=== PATIENT | male | born 1980 | race Caucasian/White ===

== ENCOUNTER → 2018-09-05 06:39 | Outpatient (CLI) | payer OTHER, SELFPAY ==
[2018-09-05 07:20] LABS: Hematocrit 47.2 % (40-54); Hemoglobin 16.7 g/dl (13.0-16.5); Mean Corp Hgb Conc 35.4 g/gl (32-36); Mean Corpuscular Hgb 30.4 pg (27.0-32.0); Mean Platelet Vol. 10.2 fl (6.2-12.0); Platelet Count 181 K/mm3 (150-450); RBC Distribution Width CV 12.3 % (11.6-14.6); RBC Distribution Width SD 38.8 fl (35.1-43.9); Red Blood Count 5.49 M/mm3 (4.6-6.2); White Blood Count 4.8 K/mm3 (4.4-11.0)
[2018-09-05 07:24] LABS: Scan Indicated on CBC? Y/N NO
[2018-09-05 07:55] LABS: Hemoglobin A1c 4.3 % (4.2-6.3)
[2018-09-05 08:04] LABS: Homocysteine 7.6 umol/L (3.2-10.7)
[2018-09-05 08:26] LABS: ALB/GLOB Ratio 1.1 RATIO (0.9-2.4); AST(SGOT) 19 U/L (15-37); Alanine Aminotransfer ALT/SGPT 32 U/L (16-61); Albumin, Serum 4.1 g/dL (3.2-5.0); Alkaline Phosphatase 56 U/L (45-117); Anion Gap 6 (5-15); BUN 23 mg/dL (7-18); BUN/Creat Ratio 18.4 RATIO (10-20); CRP, High Sensitivity Cardiac 0.42 mg/L; Chloride 105 mmol/L (98-107); Cholesterol 235 mg/dL (200); Creatinine, Serum 1.25 mg/dL (0.70-1.30); EST Glomerular Filtration Rate 69 mL/min (>60); Est Glom Filt Rate - Afr Amer 84 mL/min (>60); Estradiol 16.6 pg/mL; Follicle Stimulating Hormone 3.9 mIU/mL; Free T3 2.8 pg/mL (2.18-3.98); Globulin 3.9 g/dL (2.2-4.2); Glucose 92 mg/dL (74-106); High Density Lipoprotein 105 mg/dL; Iron 109 ug/dL (65-175); Luteinizing Hormone 4.8 mIU/mL; Magnesium 2.2 mg/dL (1.6-2.6); PSA,Total - Annual Screen 0.53 ng/mL (0.00-4.00); Potassium 4.3 mmol/L (3.5-5.1); Prolactin 9.6 ng/mL; Sodium Level 141 mmol/L (136-145); T4 Free Direct 1.12 ng/dL (0.76-1.46); Triglycerides 60 mg/dL; Very Low Density Lipoprotein 12 mg/dL (5-40)
[2018-09-05 08:48] LABS: Vitamin B12 702 pg/mL (211-911)
[2018-09-09 14:09] LABS: DHEA Sulfate 429.7 ug/dL (102.6-416.3); Insulin Like Growth Factor 173 ng/mL (83-233); Testosterone, % Free 3.08 % (1.50-4.20); Testosterone, Free 12.01 ng/dL (5.00-21.00)
[2018-09-09 15:38] LABS: Sex Hormone-binding Globulin 41.3 nmol/L (16.5-55.9); Testosterone, Total 390 ng/dL (264-916)
== END ==
PROVIDERS: Family Provider Internal Medicine; PCP Internal Medicine; Referring Provider Registered Nurse; Visit Provider Registered Nurse
DX: R53.82 Chronic fatigue, unspecified (principal); R68.82 Decreased libido
CPT/HCPCS: 36415; 80053; 80061; 82306; 82533; 82607; 82627; 82670; 82746; 83001; 83002; 83036; 83090; 83540; 83735; 84146; 84153; 84270; 84305; 84402; 84403; 84439; 84443; 84481; 85027; 86141; 82626; G0103

== ENCOUNTER → 2018-11-20 05:59 | Outpatient (CLI) | payer OTHER, SELFPAY ==
[2018-11-20 07:07] LABS: Hematocrit 50.7 % (40-54); Hemoglobin 17.5 g/dL (13.0-16.5); Mean Corp Hgb Conc 34.5 g/dL (32-36); Mean Corpuscular Hgb 31.7 pg (27.0-32.0); Mean Corpuscular Volume 91.8 fL (80-94); Mean Platelet Vol. 10.5 fl (6.2-12.0); Platelet Count 204 K/mm3 (150-450); RBC Distribution Width CV 11.7 % (11.6-14.6); RBC Distribution Width SD 39.8 fl (35.1-43.9); Red Blood Count 5.52 M/mm3 (4.6-6.2); White Blood Count 6.7 K/mm3 (4.4-11.0)
[2018-11-20 07:45] LABS: ALB/GLOB Ratio 1.1 RATIO (0.9-2.4); AST(SGOT) 22 U/L (15-37); Alanine Aminotransfer ALT/SGPT 34 U/L (16-61); Albumin, Serum 3.8 g/dL (3.2-5.0); Alkaline Phosphatase 52 U/L (45-117); Anion Gap 4 (5-15); BUN 18 mg/dL (7-18); BUN/Creat Ratio 16.2 RATIO (10-20); Calcium,Total 8.3 mg/dL (8.5-10.1); Chloride 104 mmol/L (98-107); Cholesterol 184 mg/dL (200); Creatinine, Serum 1.11 mg/dL (0.70-1.30); EST Glomerular Filtration Rate 79 mL/min (>60); Est Glom Filt Rate - Afr Amer 96 mL/min (>60); Estradiol 89.7 pg/mL; Globulin 3.5 g/dL (2.2-4.2); Glucose 90 mg/dL (74-106); High Density Lipoprotein 68 mg/dL; Potassium 3.5 mmol/L (3.5-5.1); Protein, Total 7.3 g/dL (6.4-8.2); Sodium Level 137 mmol/L (136-145); Triglycerides 84 mg/dL; Very Low Density Lipoprotein 17 mg/dL (5-40)
[2018-11-20 08:50] LABS: Progesterone Level 0.61 ng/mL (See Comment); Vitamin B12 515 pg/mL (211-911); Vitamin D,25 Hydroxy 40.8 ng/mL (29.95-100.01)
[2018-11-25 11:36] LABS: DHEA Sulfate 335.6 ug/dL (102.6-416.3); Testosterone, % Free 5.08 % (1.50-4.20); Testosterone, Total > 1500 ng/dL (264-916)
== END ==
PROVIDERS: Family Provider Internal Medicine; PCP Internal Medicine
DX: R53.82 Chronic fatigue, unspecified (principal); R68.82 Decreased libido; E29.1 Testicular hypofunction
CPT/HCPCS: 36415; 80053; 80061; 82306; 82607; 82627; 82670; 82746; 84144; 84402; 84403; 85027; 82626

== ENCOUNTER → 2019-03-06 12:05 | Outpatient (CLI) | payer OTHER, SELFPAY ==
[2019-03-04 17:05] VITALS: BMI 27.8
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
== END ==
PROVIDERS: Family Provider Internal Medicine; PCP Internal Medicine; Referring Provider Physician Assistant; Visit Provider Physician Assistant
DX: S46.912A Strain of unspecified muscle, fascia and tendon at shoulder and upper arm level, left arm, initial encounter (principal); V89.2XXA Person injured in unspecified motor-vehicle accident, traffic, initial encounter
CPT/HCPCS: 73221

== ENCOUNTER 2019-04-04 07:00 | Outpatient (RCR) | payer OTHER, SELFPAY ==
[2019-03-07 08:18] VITALS: BMI 27.8
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
--- NOTE | 2019-04-04 07:50 | HP.PTDCSUM ---
HP - PT D/C Summary It has been my pleasure to treat ZACHARY GONZALEZ under orders from EZEQUIEL Reyes, for the diagnosis of L shoulder sprain for a total of 5 visit(s). Discharge Date: Please see the following information for a summary of their discharge status. - Subjective Subjective: Pt reports his hands still go numb with driving. Only mild L shoulder pain this date - Pain L shoulder Pain Intensity (Out of 10): 1 - Overall Improvement % Improvement: 30 - Objective Objective/Function: L shoulder pain 03/28. L shoulder ROM: flex= 150, abd= 150, ER= 10, IR WNL. L shoulder strength: B shoulder ER= 4/5. All other B UE MMT 5/5 throughout. Pt is I with HEP. Rx goals achieved - Goals Goal 1:: Decrease L shoulder pain x 50% to aid with sleep Goal 2:: Increase L shoulder abd ROM x 25 degrees to aid with overhead activity Goal 3:: Increase L shoulder strength x 1 grade to aid with RTW without difficulty Goal 4:: I with HEP - Plan Plan: Discharge - D/C Information If there are questions or concerns regarding this patient's physical therapy, please feel free to call me at [phone]. Thank you for the referral of this patient. Sincerely, Abhay Marcial, PT, ATC
== END 2019-04-04 19:00 | disposition home or self-care (01) ==
LOC: PT 07:00
PROVIDERS: Family Provider Internal Medicine; PCP Internal Medicine; Visit Provider Physician Assistant Surgical
DX: S43.402D Unspecified sprain of left shoulder joint, subsequent encounter (principal)
CPT/HCPCS: 97110; 97161; 97164

== ENCOUNTER → 2019-04-16 17:42 | Outpatient (CLI) | payer OTHER, SELFPAY ==
[2019-03-28 15:40] VITALS: BMI 27.8
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
== END ==
PROVIDERS: PCP Internal Medicine; Referring Provider Physician Assistant Surgical; Visit Provider Physician Assistant Surgical
DX: S46.912A Strain of unspecified muscle, fascia and tendon at shoulder and upper arm level, left arm, initial encounter (principal); X58.XXXA Exposure to other specified factors, initial encounter; Y93.9 Activity, unspecified; Y92.9 Unspecified place or not applicable; Y99.9 Unspecified external cause status
CPT/HCPCS: 72141

== ENCOUNTER 2020-01-22 16:19 | Outpatient (RCR) | payer SELFPAY ==
[2019-03-28 15:40] VITALS: BMI 27.8
--- NOTE | 2020-02-26 11:38 | HP.PTDCNRP_ITS ---
ZACHARY GONZALEZ was seen in my office for initial evaluation on . The following Plan of Care was established for this patient: This patient was last seen in our office . Pertinent comments regarding their Physical therapy will appear below: [employer]- self pay- dc chart At this point I will be discontinuing this patient from physical therapy. I wo uld be happy to see this patient again in the future if found appropriate by the physician. Thank you! KELSEY RicksT
== END 2020-01-22 19:00 | disposition home or self-care (01) ==
LOC: PT 16:19
PROVIDERS: PCP Internal Medicine
DX: M62.838 Other muscle spasm (principal)